=== PATIENT | male | born 1975 | race Caucasian/White ===

== ENCOUNTER 2025-02-17 14:02 | Outpatient (OUT) | payer MEDICAID, SELFPAY ==
[2025-02-17 14:53] LABS: INR 1.90; Prothrombin Time 18.9 sec (9.0-11.6)
== END 2025-02-17 14:03 | disposition home or self-care (01) ==
LOC: LAB 14:06
PROVIDERS: PCP Nurse Practitioner Primary Care; Visit Provider Nurse Practitioner Primary Care
DX: Z95.2 Presence of prosthetic heart valve (principal)
CPT/HCPCS: 36415; 85610